=== PATIENT | female | born 1970 | race Two or more races ===

== ENCOUNTER 2021-12-09 10:39 | Inpatient (IN) | payer MEDICARE, MEDICAID ==
[~2021-12-09] VITALS: Ht 144.8 cm; Wt 95.5 kg
[2021-12-09 12:13] LABS: Basophils # (auto) 0 10 ^3/uL (0-0.2); Basophils % (auto) 0.2 % (0.0-2.0); Eosinophils # (auto) 0 10 ^3/uL (0-0.8); Eosinophils % (auto) 0.3 % (0.0-7.0); Hematocrit 37.4 % (36.0-46.0); Lymphocytes # (auto) 1.4 10 ^3/uL (0.4-5.4); Lymphocytes % (auto) 12.7 % (10.0-50.0); Mean Corpuscular Hemoglobin 29.8 pg (28.0-32.0); Mean Corpuscular Hgb Conc. 34.7 g/dL (32.0-36.0); Mean Corpuscular Volume 85.8 fL (80.0-100.0); Monocytes # (auto) 0.5 10 ^3/uL (0-1.3); Monocytes % (auto) 4.6 % (0.0-12.0); Neutrophils # (auto) 8.8 10 ^3/uL (1.6-8.6); Neutrophils % (auto) 82.2 % (37.0-80.0); Nucleated Red Blood Cells % 0.1 %; Red Blood Cells 4.36 10^6/uL (4.0-5.20); Red Cell Distribution Width 12.6 % (11.8-14.3); White Blood Cell 10.7 10^3/uL (4.4-10.8)
[2021-12-09 12:29] LABS: Albumin 3.2 g/dL (3.4-5.0); BUN/Creatinine Ratio 12.6; Calcium 8.4 mg/dL (8.5-10.1); Potassium 4.3 mmol/L (3.5-5.1)
[2021-12-09 12:38] LABS: Bilirubin, Total 0.6 mg/dL (0.2-1.0); Total Protein 7.6 g/dL (6.4-8.2)
[2021-12-09] MEDS ORDERED: SODIUM CHLORIDE 0.9% 1,000 ML IV ONE (16:30)
[2021-12-09] MEDS ORDERED: NITROGLYCERIN 0.4 MG SL TAB SL PRN (17:45)
[2021-12-09] MEDS: SODIUM CHLORIDE 0.9% 1,000 ML IV SCH (18:03)
[2021-12-09] MEDS ORDERED: BICT1TAB PO (22:25)
[2021-12-09] MEDS ORDERED: TEMA15CA2 PO (22:25)
[2021-12-09] MEDS ORDERED: OXCA150T61 OR (22:25)
[2021-12-09] MEDS ORDERED: ZIPR40CA8 PO (22:25)
[2021-12-09] MEDS ORDERED: SOFO1TAB PO (22:29)
[2021-12-09] MEDS ORDERED: CLOP75TA70 PO (22:37)
[2021-12-09 23:00] VITALS: BP 106/51
[2021-12-10] MEDS: TEMAZEPAM 15 MG CAP PO SCH ×2 (00:01→22:12)
[2021-12-10] MEDS: CLOPIDOGREL BISULFATE 75 MG TAB PO SCH ×2 (00:01→22:12)
[2021-12-10 00:15] LABS: Urine Bacteria FEW /hpf (None Seen); Urine Blood 2+ /uL (Negative); Urine Mucus FEW (None Seen); Urine Specific Gravity 1.015 (1.001-1.035); Urine WBC 34 /hpf (0 - 5); Urine WBC Clumps PRESENT /hpf (None Seen)
[2021-12-10 00:34] LABS: Protein, Urine 182.9 mg/dL (0.0-11.9)
[2021-12-10 05:00] VITALS: BP 108/66
[2021-12-10 06:02] LABS: Basophils # (auto) 0 10 ^3/uL (0-0.2); Basophils % (auto) 0.2 % (0.0-2.0); Eosinophils # (auto) 0.1 10 ^3/uL (0-0.8); Hematocrit 32.6 % (36.0-46.0); Hemoglobin 11.5 g/dL (12.2-16.2); Lymphocytes # (auto) 1.5 10 ^3/uL (0.4-5.4); Lymphocytes % (auto) 19.7 % (10.0-50.0); Mean Corpuscular Hemoglobin 30.1 pg (28.0-32.0); Mean Corpuscular Hgb Conc. 35.4 g/dL (32.0-36.0); Mean Corpuscular Volume 85.1 fL (80.0-100.0); Monocytes # (auto) 0.4 10 ^3/uL (0-1.3); Monocytes % (auto) 5.5 % (0.0-12.0); Neutrophils # (auto) 5.6 10 ^3/uL (1.6-8.6); Neutrophils % (auto) 73.6 % (37.0-80.0); Red Blood Cells 3.83 10^6/uL (4.0-5.20); Red Cell Distribution Width 12.7 % (11.8-14.3); White Blood Cell 7.6 10^3/uL (4.4-10.8)
[2021-12-10 06:14] LABS: Albumin 2.8 g/dL (3.4-5.0); Calcium 7.9 mg/dL (8.5-10.1)
[2021-12-10 06:18] LABS: BUN/Creatinine Ratio 12.1; Bilirubin, Total 0.7 mg/dL (0.2-1.0); Total Protein 6.5 g/dL (6.4-8.2)
[2021-12-10 08:00] VITALS: BP 122/69
[2021-12-10] MEDS ORDERED: ENOXAPARIN SOD 30 MG/0.3 ML SYRINGE SC SCH (10:00)
[2021-12-10] MEDS: SODIUM CHLORIDE 0.9% 1,000 ML IV SCH (10:01)
[2021-12-10] MEDS ORDERED: HYDROcodone-ACET 5/325MG TAB PO PRN (11:00)
[2021-12-10 12:08] VITALS: BP 116/62
[2021-12-10] MEDS: traMADol HCL 50 MG TAB PO PRN (16:56)
[2021-12-10 22:00] VITALS: BP_SYST 109; BP_SYST 113; BP_SYST 119; BP_DIAS 60; BP_DIAS 66; BP_DIAS 68
[2021-12-11] MEDS: SODIUM CHLORIDE 0.9% 1,000 ML IV SCH ×4 (03:05→22:50)
[2021-12-11 05:00] VITALS: BP_SYST 114; BP_SYST 118; BP_SYST 120; BP_DIAS 69; BP_DIAS 70; BP_DIAS 75
[2021-12-11] MEDS: traMADol HCL 50 MG TAB PO PRN (05:36)
[2021-12-11 05:56] LABS: Basophils # (auto) 0 10 ^3/uL (0-0.2); Basophils % (auto) 0.4 % (0.0-2.0); Eosinophils # (auto) 0.1 10 ^3/uL (0-0.8); Eosinophils % (auto) 1.5 % (0.0-7.0); Hematocrit 33.4 % (36.0-46.0); Hemoglobin 11.6 g/dL (12.2-16.2); Lymphocytes # (auto) 1.3 10 ^3/uL (0.4-5.4); Lymphocytes % (auto) 19.5 % (10.0-50.0); Mean Corpuscular Hemoglobin 29.9 pg (28.0-32.0); Mean Corpuscular Hgb Conc. 34.8 g/dL (32.0-36.0); Mean Corpuscular Volume 85.8 fL (80.0-100.0); Monocytes # (auto) 0.4 10 ^3/uL (0-1.3); Monocytes % (auto) 5.7 % (0.0-12.0); Neutrophils % (auto) 72.9 % (37.0-80.0); Red Cell Distribution Width 12.7 % (11.8-14.3); White Blood Cell 6.9 10^3/uL (4.4-10.8)
[2021-12-11 06:13] LABS: Albumin 2.6 g/dL (3.4-5.0); Calcium 7.9 mg/dL (8.5-10.1); Potassium 4.1 mmol/L (3.5-5.1)
[2021-12-11 06:48] LABS: BUN/Creatinine Ratio 10.1; Bilirubin, Total 0.6 mg/dL (0.2-1.0); Total Protein 6.3 g/dL (6.4-8.2)
[2021-12-11 07:01] LABS: INR 1.01 (0.9-1.15)
[2021-12-11 08:00] VITALS: BP 109/62
[2021-12-11] MEDS: FAMOTIDINE 20 MG TAB PO SCH (10:39)
[2021-12-11 12:00] VITALS: BP_SYST 110; BP_SYST 158; BP_DIAS 74; BP_DIAS 75
[2021-12-11 16:00] VITALS: BP 114/70
[2021-12-11] MEDS: ARTIFICIAL TEARS 15ml EACHEYE PRN ×2 (18:21→20:49)
[2021-12-11] MEDS: ONDANSETRON HCL 4 MG/2 ML VIAL IV PRN (20:50)
[2021-12-11] MEDS ORDERED: LORazepam 2MG/ML-1ML VIAL IV PRN ×2 (21:00)
[2021-12-11] MEDS: TEMAZEPAM 15 MG CAP PO SCH (21:56)
[2021-12-11] MEDS: CLOPIDOGREL BISULFATE 75 MG TAB PO SCH (21:56)
[2021-12-11] MEDS: OXcarbazepine 300 MG TAB PO SCH (21:57)
[2021-12-11 22:00] VITALS: BP 97/55
[2021-12-12 00:14] LABS: Cholesterol 120 mg/dL (< 200); Triglycerides 160 mg/dL (< 150)
[2021-12-12 00:16] LABS: HDL Cholesterol 22 mg/dL (40-59); LDL Cholesterol 85 mg/dL (< 100)
[2021-12-12 05:00] VITALS: BP 108/60
[2021-12-12] MEDS: SODIUM CHLORIDE 0.9% 1,000 ML IV SCH ×3 (05:30→19:49)
[2021-12-12 06:26] LABS: Albumin 2.4 g/dL (3.4-5.0); BUN/Creatinine Ratio 9.7; Calcium 7.8 mg/dL (8.5-10.1); Potassium 4.3 mmol/L (3.5-5.1)
[2021-12-12 06:36] LABS: Bilirubin, Total 0.6 mg/dL (0.2-1.0); Total Protein 5.9 g/dL (6.4-8.2)
[2021-12-12 08:17] LABS: Hepatitis B Surface Antibody Negative (Negative)
[2021-12-12 08:50] VITALS: BP 138/72
[2021-12-12 08:53] LABS: Hepatitis A Total Antibody Negative (Negative)
[2021-12-12 09:07] LABS: Immunoglobulin G, Serum 1300 mg/dL (586-1602)
[2021-12-12] MEDS: OXcarbazepine 300 MG TAB PO SCH ×2 (09:29→21:37)
[2021-12-12] MEDS: FAMOTIDINE 20 MG TAB PO SCH (09:30)
[2021-12-12 09:51] LABS: Magnesium 2.5 mg/dL (1.6-2.6); Phosphorus 7.5 mg/dL (2.5-4.90)
[2021-12-12 11:38] LABS: Hepatitis A Ab IgM Negative
[2021-12-12 11:43] LABS: Hepatitis B Core IgM Negative
[2021-12-12 11:48] LABS: Hepatitis C Antibody Positive (Negative)
[2021-12-12 13:00] VITALS: BP 108/58
[2021-12-12 17:00] VITALS: BP 106/59
[2021-12-12 17:07] LABS: Amphetamine Screen, Urine POSITIVE (NEGATIVE); Barbiturate Scree,Urine NEGATIVE (NEGATIVE); Benzodiazephine Screen, Urine NEGATIVE (NEGATIVE); Cannabinoid Screen, Urine NEGATIVE (NEGATIVE); Cocaine Screen, Urine NEGATIVE (NEGATIVE); Phencyclidine Screen, Urine NEGATIVE (NEGATIVE)
[2021-12-12 17:15] LABS: Opiate Scree,Urine NEGATIVE (NEGATIVE)
[2021-12-12] MEDS: TEMAZEPAM 15 MG CAP PO SCH (21:37)
[2021-12-12] MEDS: CLOPIDOGREL BISULFATE 75 MG TAB PO SCH (21:37)
[2021-12-12 22:00] VITALS: BP 114/67
[2021-12-13] MEDS: SODIUM CHLORIDE 0.9% 1,000 ML IV SCH ×2 (02:46→10:34)
[2021-12-13 05:00] VITALS: BP 100/51
[2021-12-13 08:00] VITALS: BP 107/52
[2021-12-13 09:45] LABS: Albumin 2.2 g/dL (3.4-5.0); Calcium 7.6 mg/dL (8.5-10.1); Potassium 4.1 mmol/L (3.5-5.1)
[2021-12-13 09:49] LABS: BUN/Creatinine Ratio 9.2; Bilirubin, Total 0.4 mg/dL (0.2-1.0); Total Protein 5.8 g/dL (6.4-8.2)
[2021-12-13] MEDS: FAMOTIDINE 20 MG TAB PO SCH (10:34)
[2021-12-13] MEDS: OXcarbazepine 300 MG TAB PO SCH ×2 (10:34→21:58)
[2021-12-13] MEDS ORDERED: FUROSEMIDE 40 MG/4 ML VIAL IV ONE (10:45)
[2021-12-13 12:00] VITALS: BP 105/63
[2021-12-13] MEDS: SODIUM BICARBONATE 50ML VIAL 150 ML in D5W 5% 1,000 ML IV SCH ×2 (12:41→22:15)
[2021-12-13] MEDS: CALCIUM ACETATE 667 MG CAP PO SCH ×2 (12:42→18:27)
[2021-12-13 17:16] VITALS: BP 107/57
[2021-12-13] MEDS: CLOPIDOGREL BISULFATE 75 MG TAB PO SCH (21:57)
[2021-12-13 22:00] VITALS: BP 137/81
[2021-12-13] MEDS: TEMAZEPAM 15 MG CAP PO SCH (22:00)
[2021-12-14 05:00] VITALS: BP 126/69
[2021-12-14 06:10] LABS: Potassium 3.7 mmol/L (3.5-5.1)
[2021-12-14 06:13] LABS: Albumin 2.3 g/dL (3.4-5.0); Calcium 8.2 mg/dL (8.5-10.1)
[2021-12-14 06:16] LABS: Bilirubin, Total 0.4 mg/dL (0.2-1.0); Total Protein 5.7 g/dL (6.4-8.2)
[2021-12-14] MEDS: CALCIUM ACETATE 667 MG CAP PO SCH ×3 (08:28→18:30)
[2021-12-14 08:30] VITALS: BP 119/53
[2021-12-14 08:47] LABS: Basophils # (auto) 0 10 ^3/uL (0-0.2); Basophils % (auto) 0.5 % (0.0-2.0); Eosinophils # (auto) 0.2 10 ^3/uL (0-0.8); Eosinophils % (auto) 2.9 % (0.0-7.0); Hematocrit 31.2 % (36.0-46.0); Lymphocytes # (auto) 1.4 10 ^3/uL (0.4-5.4); Lymphocytes % (auto) 18.8 % (10.0-50.0); Mean Corpuscular Hemoglobin 30.1 pg (28.0-32.0); Mean Corpuscular Hgb Conc. 35.1 g/dL (32.0-36.0); Mean Corpuscular Volume 85.8 fL (80.0-100.0); Monocytes # (auto) 0.6 10 ^3/uL (0-1.3); Monocytes % (auto) 7.3 % (0.0-12.0); Neutrophils # (auto) 5.4 10 ^3/uL (1.6-8.6); Neutrophils % (auto) 70.5 % (37.0-80.0); Red Blood Cells 3.64 10^6/uL (4.0-5.20); Red Cell Distribution Width 13.1 % (11.8-14.3); White Blood Cell 7.6 10^3/uL (4.4-10.8)
[2021-12-14 09:00] VITALS: BP 119/53
[2021-12-14] MEDS: SODIUM BICARBONATE 50ML VIAL 150 ML in D5W 5% 1,000 ML IV SCH ×2 (09:45→21:15)
[2021-12-14] MEDS: FAMOTIDINE 20 MG TAB PO SCH (10:12)
[2021-12-14] MEDS: OXcarbazepine 300 MG TAB PO SCH ×2 (10:12→22:03)
[2021-12-14] MEDS: ONDANSETRON HCL 4 MG/2 ML VIAL IV PRN (10:14)
[2021-12-14] MEDS: MORPHINE SULFATE INJECTION 2 MG/ML SYRG IV PRN (10:18)
[2021-12-14 13:00] VITALS: BP 135/69
[2021-12-14 16:51] VITALS: BP 144/75
[2021-12-14 22:00] VITALS: BP 130/72
[2021-12-14] MEDS: TEMAZEPAM 15 MG CAP PO SCH (22:03)
[2021-12-14] MEDS: CLOPIDOGREL BISULFATE 75 MG TAB PO SCH (22:03)
[2021-12-15 05:00] VITALS: BP 134/75
[2021-12-15 06:27] LABS: Potassium 3.2 mmol/L (3.5-5.1)
[2021-12-15 06:43] LABS: Albumin 2.2 g/dL (3.4-5.0); BUN/Creatinine Ratio 8.2; Bilirubin, Total 0.4 mg/dL (0.2-1.0); Calcium 7.9 mg/dL (8.5-10.1); Total Protein 5.8 g/dL (6.4-8.2)
[2021-12-15 08:30] VITALS: BP 125/67
[2021-12-15 08:57] VITALS: BP 135/74
[2021-12-15] MEDS: CALCIUM ACETATE 667 MG CAP PO SCH ×3 (09:00→17:50)
[2021-12-15] MEDS: FAMOTIDINE 20 MG TAB PO SCH (09:39)
[2021-12-15] MEDS: OXcarbazepine 300 MG TAB PO SCH ×2 (09:40→22:13)
[2021-12-15] MEDS: SODIUM BICARBONATE 50ML VIAL 150 ML in D5W 5% 1,000 ML IV SCH (11:00)
[2021-12-15] MEDS: ARTIFICIAL TEARS 15ml EACHEYE PRN (11:30)
[2021-12-15 13:12] VITALS: BP 125/67
[2021-12-15 16:00] VITALS: BP 131/68
[2021-12-15 22:00] VITALS: BP 143/74
[2021-12-15] MEDS: ZIPRASIDONE 40 MG PO SCH (22:00)
[2021-12-15] MEDS: TEMAZEPAM 15 MG CAP PO SCH (22:13)
[2021-12-16] MEDS: SODIUM BICARBONATE 50ML VIAL 150 ML in D5W 5% 1,000 ML IV SCH (00:27)
[2021-12-16] MEDS: MORPHINE SULFATE INJECTION 2 MG/ML SYRG IV PRN (03:24)
[2021-12-16 05:00] VITALS: BP 127/71
[2021-12-16 07:23] LABS: Albumin 2.4 g/dL (3.4-5.0); Calcium 8.2 mg/dL (8.5-10.1)
[2021-12-16 07:25] LABS: BUN/Creatinine Ratio 7.6
[2021-12-16 07:28] LABS: Bilirubin, Total 0.4 mg/dL (0.2-1.0)
[2021-12-16] MEDS: CALCIUM ACETATE 667 MG CAP PO SCH ×3 (08:13→18:42)
[2021-12-16] MEDS: ONDANSETRON HCL 4 MG/2 ML VIAL IV PRN (08:14)
[2021-12-16 09:00] VITALS: BP 133/71
[2021-12-16] MEDS ORDERED: POTASSIUM EFFERVESENT TAB 25 MEQ PO ONE (09:15)
[2021-12-16] MEDS ORDERED: POTASSIUM CHL 20 Meq TABLET PO ONE (09:45)
[2021-12-16] MEDS: OXcarbazepine 300 MG TAB PO SCH ×2 (09:58→21:46)
[2021-12-16] MEDS: FAMOTIDINE 20 MG TAB PO SCH (09:58)
[2021-12-16] MEDS: SODIUM CHLORIDE 0.9% 1,000 ML IV SCH ×2 (10:18→23:20)
[2021-12-16] MEDS: ZIPRASIDONE 40 MG PO SCH ×2 (10:45→22:00)
[2021-12-16 11:13] LABS: Urine Bacteria FEW /hpf (None Seen); Urine Blood 2+ /uL (Negative); Urine Specific Gravity 1.007 (1.001-1.035); Urine WBC 35 /hpf (0 - 5)
[2021-12-16 13:00] VITALS: BP 142/74
[2021-12-16 17:00] VITALS: BP 141/79
[2021-12-16] MEDS ORDERED: cefTRIAXone 1GM/50ML D5W 50 ML IV ONE (17:15)
[2021-12-16 21:08] VITALS: BP 139/78
[2021-12-16] MEDS: TEMAZEPAM 15 MG CAP PO SCH (21:46)
[2021-12-17 04:56] VITALS: BP 134/74
[2021-12-17 05:40] LABS: Albumin 2.5 g/dL (3.4-5.0); Calcium 8.4 mg/dL (8.5-10.1); Potassium 3.4 mmol/L (3.5-5.1)
[2021-12-17 05:44] LABS: BUN/Creatinine Ratio 7.4; Bilirubin, Total 0.4 mg/dL (0.2-1.0); Total Protein 6.5 g/dL (6.4-8.2)
[2021-12-17 08:00] VITALS: BP 141/72
[2021-12-17] MEDS: CALCIUM ACETATE 667 MG CAP PO SCH ×3 (08:10→18:33)
[2021-12-17] MEDS: cefTRIAXone 1GM/50ML D5W 50 ML IV SCH (10:04)
[2021-12-17] MEDS: POTASSIUM EFFERVESENT TAB 25 MEQ PO SCH (10:05)
[2021-12-17] MEDS: FAMOTIDINE 20 MG TAB PO SCH (10:05)
[2021-12-17] MEDS: ZIPRASIDONE 40 MG PO SCH ×2 (10:05→21:34)
[2021-12-17] MEDS: OXcarbazepine 300 MG TAB PO SCH ×2 (10:11→21:34)
[2021-12-17 12:01] VITALS: BP 133/72
[2021-12-17] MEDS: SODIUM CHLORIDE 0.9% 1,000 ML IV SCH (12:54)
[2021-12-17 16:00] VITALS: BP 149/78
[2021-12-17] MEDS: Nepro With Carbsteady ButterPecan 8oz Carton PO SCH (18:33)
[2021-12-17] MEDS: ARTIFICIAL TEARS 15ml EACHEYE PRN (18:33)
[2021-12-17] MEDS: TEMAZEPAM 15 MG CAP PO SCH (21:34)
[2021-12-17 21:48] VITALS: BP 155/83
[2021-12-18] MEDS: SODIUM CHLORIDE 0.9% 1,000 ML IV SCH ×2 (02:00→13:00)
[2021-12-18] MEDS: ONDANSETRON HCL 4 MG/2 ML VIAL IV PRN (02:34)
[2021-12-18 04:43] VITALS: BP 142/79
[2021-12-18 06:02] LABS: Potassium 3.5 mmol/L (3.5-5.1)
[2021-12-18 06:09] LABS: Albumin 2.7 g/dL (3.4-5.0); BUN/Creatinine Ratio 6.9; Calcium 8.5 mg/dL (8.5-10.1)
[2021-12-18 06:12] LABS: Bilirubin, Total 0.3 mg/dL (0.2-1.0); Total Protein 6.7 g/dL (6.4-8.2)
[2021-12-18] MEDS: CALCIUM ACETATE 667 MG CAP PO SCH ×3 (08:49→18:30)
[2021-12-18] MEDS: cefTRIAXone 1GM/50ML D5W 50 ML IV SCH (08:50)
[2021-12-18] MEDS: FAMOTIDINE 20 MG TAB PO SCH (08:51)
[2021-12-18] MEDS: OXcarbazepine 300 MG TAB PO SCH ×2 (08:51→21:13)
[2021-12-18] MEDS: ZIPRASIDONE 40 MG PO SCH ×2 (08:51→21:13)
[2021-12-18] MEDS: Nepro With Carbsteady ButterPecan 8oz Carton PO SCH ×2 (09:00→18:30)
[2021-12-18] MEDS ORDERED: amLODIPine BESYLATE 5 MG TAB PO ONE (10:30)
[2021-12-18] MEDS: POTASSIUM EFFERVESENT TAB 25 MEQ PO SCH (12:20)
[2021-12-18] MEDS ORDERED: ACETAMINOPHEN 325 MG TAB PO PRN (15:45)
[2021-12-18 17:00] VITALS: BP 122/74
[2021-12-18 22:00] VITALS: BP 136/78
[2021-12-19 05:00] VITALS: BP 140/70
[2021-12-19 05:40] LABS: Potassium 3.4 mmol/L (3.5-5.1)
[2021-12-19 05:46] LABS: Albumin 2.8 g/dL (3.4-5.0); Bilirubin, Total 0.3 mg/dL (0.2-1.0); Calcium 8.6 mg/dL (8.5-10.1)
[2021-12-19] MEDS: SODIUM CHLORIDE 0.9% 1,000 ML IV SCH (08:45)
[2021-12-19] MEDS: Nepro With Carbsteady ButterPecan 8oz Carton PO SCH ×2 (08:54→18:09)
[2021-12-19] MEDS: POTASSIUM EFFERVESENT TAB 25 MEQ PO SCH (08:55)
[2021-12-19] MEDS: CALCIUM ACETATE 667 MG CAP PO SCH ×3 (08:55→18:09)
[2021-12-19] MEDS: amLODIPine BESYLATE 5 MG TAB PO SCH (08:56)
[2021-12-19] MEDS: FAMOTIDINE 20 MG TAB PO SCH (08:57)
[2021-12-19] MEDS: OXcarbazepine 300 MG TAB PO SCH ×2 (08:58→21:05)
[2021-12-19] MEDS: ZIPRASIDONE 40 MG PO SCH ×2 (08:59→21:05)
[2021-12-19] MEDS: cefTRIAXone 1GM/50ML D5W 50 ML IV SCH (09:01)
[2021-12-19 17:00] VITALS: BP_SYST 139; BP_DIAS 76; BP_DIAS 79
[2021-12-19 21:46] VITALS: BP 138/76
[2021-12-20] MEDS: SODIUM CHLORIDE 0.9% 1,000 ML IV SCH (04:45)
[2021-12-20 04:51] VITALS: BP 149/77
[2021-12-20 06:18] LABS: Basophils # (auto) 0.1 10 ^3/uL (0-0.2); Basophils % (auto) 0.6 % (0.0-2.0); Eosinophils # (auto) 0.4 10 ^3/uL (0-0.8); Eosinophils % (auto) 3.7 % (0.0-7.0); Hematocrit 33.5 % (36.0-46.0); Hemoglobin 11.7 g/dL (12.2-16.2); Lymphocytes % (auto) 20.6 % (10.0-50.0); Mean Corpuscular Hgb Conc. 34.9 g/dL (32.0-36.0); Monocytes # (auto) 0.5 10 ^3/uL (0-1.3); Monocytes % (auto) 5.5 % (0.0-12.0); Neutrophils # (auto) 6.7 10 ^3/uL (1.6-8.6); Neutrophils % (auto) 69.6 % (37.0-80.0); Nucleated Red Blood Cells % 0.1 %; White Blood Cell 9.6 10^3/uL (4.4-10.8)
[2021-12-20 06:24] LABS: BUN/Creatinine Ratio 8.7; Bilirubin, Total 0.3 mg/dL (0.2-1.0); Calcium 8.9 mg/dL (8.5-10.1); Magnesium 1.8 mg/dL (1.6-2.6); Potassium 3.7 mmol/L (3.5-5.1); Total Protein 7.4 g/dL (6.4-8.2)
[2021-12-20 08:00] VITALS: BP 141/84
[2021-12-20] MEDS: amLODIPine BESYLATE 5 MG TAB PO SCH (09:56)
[2021-12-20] MEDS: ZIPRASIDONE 40 MG PO SCH (10:00)
[2021-12-20] MEDS: OXcarbazepine 300 MG TAB PO SCH (10:01)
[2021-12-20] MEDS: FAMOTIDINE 20 MG TAB PO SCH (10:01)
[2021-12-20] MEDS: CALCIUM ACETATE 667 MG CAP PO SCH ×2 (10:03→12:36)
[2021-12-20] MEDS: POTASSIUM EFFERVESENT TAB 25 MEQ PO SCH (10:03)
[2021-12-20] MEDS: Nepro With Carbsteady ButterPecan 8oz Carton PO SCH (10:07)
[2021-12-20] MEDS: cefTRIAXone 1GM/50ML D5W 50 ML IV SCH (10:07)
[2021-12-20] MEDS ORDERED: AMLO-496 PO (11:03)
[2021-12-20] MEDS ORDERED: AMOX500T86 PO (11:05)
[2021-12-20 12:00] VITALS: BP 136/77
[2021-12-20 12:41] VITALS: BP 141/84
[2021-12-20 16:00] VITALS: BP 133/70
== END 2021-12-20 17:00 | disposition home health service (06) | DRG 557 ==
LOC: ER 10:39 → OVERFLOW 17:40 → EAST 23:34 → WEST WING 12-15 15:15
PROVIDERS: ADMIT Internal Medicine; ATTEND Internal Medicine
DX: M62.82 Rhabdomyolysis (principal); N17.0 Acute kidney failure with tubular necrosis; E87.1 Hypo-osmolality and hyponatremia; Z68.42 Body mass index [BMI] 45.0-49.9, adult; N39.0 Urinary tract infection, site not specified; B20 Human immunodeficiency virus [HIV] disease; M54.50 Low back pain, unspecified; D69.6 Thrombocytopenia, unspecified; E88.09 Other disorders of plasma-protein metabolism, not elsewhere classified; N28.1 Cyst of kidney, acquired; B18.2 Chronic viral hepatitis C; E03.9 Hypothyroidism, unspecified; Z20.822 Contact with and (suspected) exposure to COVID-19; F20.9 Schizophrenia, unspecified; F31.9 Bipolar disorder, unspecified; G40.909 Epilepsy, unspecified, not intractable, without status epilepticus; B96.20 Unspecified Escherichia coli [E. coli] as the cause of diseases classified elsewhere; E66.01 Morbid (severe) obesity due to excess calories; F17.200 Nicotine dependence, unspecified, uncomplicated; G47.00 Insomnia, unspecified; I10 Essential (primary) hypertension; E78.5 Hyperlipidemia, unspecified; W18.39XA Other fall on same level, initial encounter; Y93.89 Activity, other specified; Y92.89 Other specified places as the place of occurrence of the external cause; Z86.73 Personal history of transient ischemic attack (TIA), and cerebral infarction without residual deficits; Z79.899 Other long term (current) drug therapy; Z79.02 Long term (current) use of antithrombotics/antiplatelets; Z82.49 Family history of ischemic heart disease and other diseases of the circulatory system; Z90.710 Acquired absence of both cervix and uterus; Y99.8 Other external cause status; R55 Syncope and collapse
CPT/HCPCS: 36415; 70450; 70551; 72125; 72131; 74176; 76705; 76775; 80053; 80061; 80074; 80307; 81001; 82043; 82140; 82550; 82570; 82728; 82784; 83036; 83516; 83520; 83735; 83874; 83883; 84100; 84155; 84156; 84165; 84300; 84443; 84484; 84702; 85025; 85610; 85730; 86160; 86225; 86235; 86256; 86334; 86431; 86704; 86706; 86708; 86803; 87086; 87340; 93005; 93306; 93886; 95819; 96360; 96361; 97110; 97116; 97163; 97530; 99291; G0378; J0696; J2405

== ENCOUNTER 2022-03-03 19:09 | Emergency (ER) | payer MEDICARE, MEDICAID ==
[~2022-03-03] VITALS: Ht 172.7 cm; Wt 85.7 kg
[~2022-03-03 19:09] MED LIST: AMLO-496 PO; AMOX500T86 PO; BICT1TAB PO; CLOP75TA70 PO; OXCA150T61 OR; SOFO1TAB PO; TEMA15CA2 PO; ZIPR40CA8 PO
[2022-03-03] MEDS ORDERED: IBUPROFEN 600 MG TAB PO ONE (19:45)
[2022-03-03 20:20] VITALS: BP 129/68
== END 2022-03-03 21:17 | disposition home or self-care (01) ==
LOC: ER 19:09
DX: S00.03XA Contusion of scalp, initial encounter (principal); Z86.73 Personal history of transient ischemic attack (TIA), and cerebral infarction without residual deficits; Z79.01 Long term (current) use of anticoagulants; Z79.899 Other long term (current) drug therapy; W18.39XA Other fall on same level, initial encounter; Y93.89 Activity, other specified; Y92.89 Other specified places as the place of occurrence of the external cause; Y99.8 Other external cause status